=== PATIENT | female | born 1980 | race Two or more races ===

== ENCOUNTER 2021-06-25 03:23 | Emergency (ER) | payer BC ==
[~2021-06-25] VITALS: Ht 167.6 cm; Wt 79.4 kg
[2021-06-25 04:03] VITALS: BP 121/61
== END 2021-06-25 06:58 | disposition left against medical advice (07) ==
LOC: EDBD 03:23 → ER 03:23
DX: R07.89 Other chest pain (principal); Z53.21 Procedure and treatment not carried out due to patient leaving prior to being seen by health care provider